=== PATIENT | male | born 1985 | race African-American/Black ===

== ENCOUNTER 2018-05-23 16:10 | Emergency (ER) | payer OTHER ==
[~2018-05-23] VITALS: Ht 190.5 cm; Wt 76.7 kg
[2018-05-23 16:20] VITALS: Ht 190.5 cm; Wt 76.7 kg
[2018-05-23 18:28] VITALS: BP 143/74
== END 2018-05-23 18:28 | disposition home or self-care (01) ==
LOC: ED 16:10
DX: S16.1XXA Strain of muscle, fascia and tendon at neck level, initial encounter (principal); S09.8XXA Other specified injuries of head, initial encounter; V49.88XA Car occupant (driver) (passenger) injured in other specified transport accidents, initial encounter; Y93.I9 Activity, other involving external motion; Y92.413 State road as the place of occurrence of the external cause; Y99.8 Other external cause status